=== PATIENT | female | born 1965 | race Caucasian/White ===

== ENCOUNTER → 2019-11-12 | Outpatient (CLI) | payer OTHER ==
--- NOTE | 2019-11-12 18:52 | KCIC ---
EXAM: Abdominal Ultrasound Complete INDICATION: Abdominal pain for 2 weeks TECHNIQUE: Real-time ultrasound of the abdomen was performed with permanent freeze-frame documentation. COMPARISON: None FINDINGS: BILIARY:?Gallbladder is unremarkable. No biliary ductal dilatation. The common bile duct measures 0.2 cm. LIVER:?Unremarkable. Measures 14.7 cm in length. ? SPLEEN: Normal. It measures 8.5 cm in length. ? RIGHT KIDNEY: 10.3 x 2.7 x 3.9 cm. Unremarkable. ? LEFT KIDNEY: 10.5 x 3.6 x 4.5 cm. ?Unremarkable. ? PANCREAS:?Visualized pancreas is unremarkable. ? RETROPERITONEAL: Visualized abdominal aorta and IVC are unremarkable. OTHER: No significant free fluid. IMPRESSION: Normal abdominal ultrasound. Electronically signed by: Rubi Goddard MD (11/12/2019 3:36 PM) [facility]
== END | disposition home or self-care (01) ==
LOC: KCIC US 14:34
PROVIDERS: ATTEND Family Medicine Adult Medicine
DX: R10.9 Unspecified abdominal pain (principal)
CPT/HCPCS: 76700